=== PATIENT | female | born 1965 ===

== ENCOUNTER 2017-02-07 07:18 | Day surgery (SDC) | payer MEDICAID ==
[2017-02-02 09:41] VITALS: BMI 29.8
[2017-02-07] MEDS ORDERED: Bupivacaine HCl 0.25% PF (10 ml) Inj ONE (07:29)
[2017-02-07] MEDS ORDERED: Propofol 10 mg/ml Inj (20 ML) ONE (07:59)
[2017-02-07] MEDS ORDERED: Midazolam 2 MG/2 ML VIAL ONE (07:59)
[2017-02-07] MEDS: Lidocaine 1% Inj (20ml) ONE ×2 (08:05→09:18)
[2017-02-07] MEDS: Bupivacaine-Epi 0.25%-1:200,000 PF Inj ONE ×2 (08:05→09:18)
[2017-02-07] MEDS: ceFAZolin IV 2 gm in Dextrose 1 GM/50 ML BAG IVPB ONE ×2 (08:06→09:05)
[2017-02-07] MEDS ORDERED: Lactated Ringer's 1,000 ML IV ONE ×4 (08:06→12:30)
[2017-02-07] MEDS ORDERED: Neostigmine Methylsulfate 3mg/3ml Syringe IV ONE (09:50)
--- NOTE | 2017-02-07 10:36 | PCM.SURG1 ---
Surgeon's Initial Post Op Note - Surgeon's Notes Surgeon: Dr. Rahman Ultrasound Coordinator: Elba Addison, PGY2 Pre-Operative Diagnosis: cholelithiasis, biliary colic Operative Findings: see operative report Post-Operative Diagnosis: same Operation Performed: robotic cholecystectomy Specimen/Specimens Removed: gallbladder Estimated Blood Loss: EBL {In ML}: 15 Date of Surgery/Procedure: 02/07/17 Time of Surgery/Procedure: 09:00
[2017-02-07] MEDS ORDERED: Oxycodone/Acetaminophen 5/325 mg Tab PO PRN (10:37)
[2017-02-07] MEDS: HYDROmorphone 0.5 mg/0.5 ml ISec IVP PRN ×3 (11:07→12:32)
[2017-02-07 13:03] VITALS: BP 112/50; PULSE 63; RESP 18; TEMP 98; O2SAT 97
--- NOTE | 2017-02-13 12:21 | OP ---
PROCEDURE DATE: 02/07/2017 PREOPERATIVE DIAGNOSES: Chronic cholecystitis and cholelithiasis. POSTOPERATIVE DIAGNOSES: Chronic cholecystitis and cholelithiasis. PROCEDURE: 1. Robotic cholecystectomy. 2. Robotic lysis of adhesion. SURGEON: Dr. Alfonzo Rahman. PUTTY PATCHER: TANIYA Godinez. Elba was present from the beginning to the end of the procedure helping placement of port, docking and undocking of the robot and closure of the wound. TYPE OF ANESTHESIA: General endotracheal anesthesia. ESTIMATED BLOOD LOSS: Around 10 mL. DRAINS: None. PATHOLOGY: The gallbladder was sent for pathology. COMPLICATIONS: None. INTRAOPERATIVE FINDINGS: The patient had changes of chronic cholecystitis and cholelithiasis. Post infectious adhesions. The patient had changes of chronic cholecystitis and cholelithiasis as well as post infectious right upper quadrant adhesions and on intraoperative test this 51-year-old female who was diagnosed with chronic cholecystitis and cholelithiasis and the patient was consented for robotic cholecystectomy possible open, brought to the OR, placed supine on the operating table after induction of the anesthesia. The abdomen was prepped and draped in the usual sterile fashion. The supraumbilical transverse 1.5 cm incision was made. After incising skin, subcutaneous tissue and fascia, the robotic camera port was placed. Another 3 8-mm port was placed in the upper abdomen and robot was brought in. Camera arm as well as arm I and arm II was docked and the instrument was placed and through the console the gallbladder was resected manually. There was adhesion between the duodenum and infundibulum as well as Calot's triangle and there was also adhesion of the omentum to the gallbladder and first excising lysis of adhesion was done. Due to the morbid obesity it was very difficult right upper quadrant approach and now the Calot's triangle was identified and infundibulum was resected laterally. The cystic duct and cystic artery was identified. The intraoperative firefly was used to identify the anatomy. A cystic duct and common bile duct was identified and now the cystic duct and cystic artery was clipped at three places and cut in between two clips near by gallbladder and gallbladder was dissected free from the gallbladder fossa. Taken into EndoCatch bag, taken out through the umbilical port site and sent off the table for the pathology. There was proper hemostasis in each and every part of the procedure and after removing the instruments, robot was undocked, all the ports were taken out under vision, pneumo was deflated. Umbilical port site was closed in two-layer, the fascia with 0-Vicryl in separate sutures and skin with 4-0 Monocryl and dry sterile dressing was applied. The patient tolerated the procedure well. Counts of instruments was correct and there was no apparent complication. Alfonzo Rahman MD MTDD
== END 2017-02-07 17:53 | disposition home or self-care (01) ==
LOC: C.SDS 07:18
PROVIDERS: ATTEND Surgery Surgical Critical Care
DX: K80.10 Calculus of gallbladder with chronic cholecystitis without obstruction (principal); K82.4 Cholesterolosis of gallbladder
CPT/HCPCS: 47562; 88305; J0690; J1100; J1170; J1885; J2250; J2405; J2704; J2710; J3010; J7120; S2900